=== PATIENT | female | born 1995 | race African-American/Black ===

== ENCOUNTER 2018-08-21 21:46 | Emergency (ER) | payer BC ==
[2018-08-21 22:11] VITALS: BMI 40.2
--- NOTE | 2018-08-21 23:51 | PDOC ---
History of Present Illness - General Chief Complaint: Pain Stated Complaint: CHEST PAIN Time Seen by Provider: 08/21/18 23:19 History Source: Patient Exam Limitations: No Limitations - History of Present Illness Initial Comments: 08/21/18 23:32 HISTORY OF PRESENT ILLNESS: 23-year-old woman and denies medical history presents emergency department for evaluation of tightness in her left chest under her left breast. Patient reports earlier today while at work she felt a fluttering sensation in her chest and noted her heart rate at 130 bpm on her Smartt watch. Patient reports symptoms spontaneously resolved after a brief time but she was able to return to work without difficulty. While packing her house to move today she began to experience the tightness in her chest was noted to have a heart rate of 120s on her Smartt watch at that time. Patient was concerned and presented to the emergency department immediately for evaluation. Patient reports symptoms have resolved spontaneously and currently is a heart rate of 88. No recent travel or sick contacts. PAST MEDICAL HISTORY: Denies past medical history SURGICAL HISTORY: Denies ALLERGIES: No known drug allergies REVIEW OF SYSTEMS General/Constitutional: Denies fever or chills. Denies weakness, weight change. HEENT: Denies change in vision. Denies ear pain or discharge. Denies sore throat. Cardiovascular: see HPI Respiratory: Denies cough, wheezing, or hemoptysis. Gastrointestinal: Denies nausea, vomiting, diarrhea or constipation. Denies rectal bleeding. Genitourinary: Denies dysuria, frequency, or change in urination. Musculoskeletal: Denies joint or muscle swelling or pain. Denies neck or back pain. Skin and breasts: Denies rash or easy bruising. Neurologic: Denies headache, vertigo, loss of consciousness, or loss of sensation. Psychiatric: Denies depression or anxiety. Endocrine: Denies increased thirst. Denies abnormal weight change. Hematologic/Lymphatic: Denies anemia, easy bleeding, or history of blood clots. Allergic/Immunologic: Denies hives or skin allergy. Denies latex allergy. PHYSICAL EXAM General Appearance: Well-appearing, appropriately dressed. No apparent distress , no intoxication. HEENT: EOMI, PERRLA, normal ENT inspection, normal voice, TMs normal, pharynx normal. No conjunctival pallor. No photophobia, scleral icterus. Neck: Supple. Trachea midline. No tenderness, rigidity, carotid bruit, stridor , lymphadenopathy, or thyromegaly. Respiratory/Chest: Lungs CTAB. No shortness of breath, chest tenderness, respiratory distress, accessory muscle use. No crackles, rales, rhonchi, stridor , wheezing, dullness Cardiovascular: RRR. S1, S2. No JVD, murmur, bradycardia, tachycardia. Vascular Pulses: Dorsalis-Pedis (R): 2+, Dorsalis-Pedis (L): 2+ Gastrointestinal/Abdominal: Normal bowel sounds. Abdomen soft, non-distended. No tenderness or rebound tenderness. No organomegaly, pulsatile mass, guarding, hernia, hepatomegaly, splenomegaly. Lymphatic: No adenopathy, tenderness. Musculoskeletal/Extremities: Normal inspection. FROM of all extremities, normal capillary refill. Pelvis Stable. No CVA tenderness. No tenderness to extremities, pedal edema, swelling, erythema or deformity. Integumentary: Appropriate color, dry, warm. No cyanosis, erythema, jaundice or rash Neurologic: ent consultant II-XII intact. Fully oriented, alert. Appropriate mood/affect. Motor strength 5/5. No appreciable EOM palsy, facial droop or sensory deficit. Past History - Past Medical History Allergies/Adverse Reactions: Allergies Allergy/AdvReac Type Severity Reaction Status Date / Time No Known Allergies Allergy Verified 08/21/18 22:07 Home Medications: Ambulatory Orders NK [No Known Home Medication] 08/21/18 COPD: No - Suicide/Smoking/Psychosocial Hx Smoking History: Never smoked *Physical Exam - Vital Signs Last Vital Signs Temp Pulse Resp BP Pulse Ox 98.2 F 82 18 130/41 L 98 08/22/18 03:30 08/22/18 03:30 08/22/18 03:30 08/22/18 03:30 08/22/18 03:30 Heart Score/ECG Review - History History: Slightly suspicious - Electrocardiogram EKG: Non specific repolarization disturbance - Age Age: </= 45 - Risk Factors Risk Factors Heart Score: Yes Hx Obesity Based on the list above the patient has:: 1-2 risk factors - Troponin Troponin: </= normal limit - Score Heart Score - Total: 2 - ECG Intrepretation Rhythm: Regular Rhythm - ECG Impressions Tachycardia: Sinus ED Treatment Course - LABORATORY CBC & Chemistry Diagram: 08/22/18 00:01 08/22/18 02:10 - ADDITIONAL ORDERS Additional order review: 08/22/18 00:01 RBC 3.95 MCV 88.3 MCHC 33.7 RDW 13.5 MPV 8.7 Neutrophils % 63.9 Lymphocytes % 25.8 Monocytes % 6.1 Eosinophils % 3.3 Basophils % 0.9 - RADIOLOGY Radiology Studies Ordered: Category Date Time Status CHEST PA & LAT [RAD] Stat Radiology 08/22/18 01:31 Completed Medical Decision Making - Medical Decision Making 08/21/18 23:51 A/P: 23-year-old woman with left-sided chest tightness lasting approximately 30 minutes Differential diagnosis includes-ACS, PE, pneumonia, anxiety, musculoskeletal pain, pneumothorax Labs including cardiac profile and d-dimer Chest x-ray EKG sinus tachycardia with rate of 111. Normal intervals present. Normal axis. T -wave inversions in V3. Urinalysis, urine Reassess 08/22/18 01:45 Chemistries were hemolyzed D-dimer is QNS Chest x-rays read by me and will sharp. Lung leary are clear. No pneumothorax is seen. Trachea is midline. Cardiac silhouette is within normal limits. Redraw labs Likely discharge 08/22/18 03:07 [id number] Chemistries are unremarkable with a troponin of less than 0.02 TSH is within normal limits I will discharge the patient home to follow-up with her primary doctor 08/22/18 03:22 *DC/Admit/Observation/Transfer Diagnosis at time of Disposition: Anxiety - Discharge Dispostion Disposition: HOME Condition at time of disposition: Stable Decision to Admit order: No - Referrals Referrals: Steven Dhlilon MD [Primary Care Provider] - - Patient Instructions Printed Discharge Instructions: DI for Anxiety -- Adult Additional Instructions: Your evaluation in the emergency department is incomplete and 2 follow-up with your primary doctor. Your EKG, chest x-ray and laboratory testing today was normal. Make an appointment with her primary doctor within the next 4 days. Return to emergency department for any new or worsening symptoms. Thank you very much for choosing us to provide your emergent health care needs. - Post Discharge Activity
[2018-08-22 00:35] LABS: BASO % 0.9 % (0-2.0); EOS % 3.3 % (0-4.5); HEMATOCRIT 34.9 % (32.4-45.2); HEMOGLOBIN 11.7 GM/dL (10.7-15.3); LYMPH % 25.8 % (8-40); MCH 29.8 pg (25.7-33.7); MCHC 33.7 g/dl (32.0-36.0); MEAN CELL VOLUME 88.3 fl (80-96); MEAN PLT VOLUME 8.7 fl (7.5-11.1); MONO % 6.1 % (3.8-10.2); NEUT % 63.9 % (42.8-82.8); PLATELET COUNT 206 K/MM3 (134-434); RBC 3.95 M/mm3 (3.60-5.2); RDW 13.5 % (11.6-15.6); WHITE BLOOD COUNT 7.5 K/mm3 (4.0-10.0)
[2018-08-22 01:00] LABS: HCG,QUALITATIVE URINE Negative
[2018-08-22 01:03] LABS: EPI CELLS 11.6 /HPF (0-5/HPF); HYALINE CASTS 3 /lpf (0-8); PH,URINE 6.5 (5.0-8.0); URINE APPEARANCE CLOUDY; URINE BACTERIA 433.6 /hpf (NEGATIVE); URINE BILIRUBIN NEGATIVE (NEGATIVE); URINE COLOR YELLOW; URINE GLUCOSE (UA) NEGATIVE (NEGATIVE); URINE KETONE NEGATIVE (NEGATIVE); URINE LEUK ESTERASE TRACE (NEGATIVE); URINE NITRITE NEGATIVE (NEGATIVE); URINE PROTEIN NEGATIVE (NEGATIVE); URINE RBC 5 /hpf (0-4); URINE UROBILINOGEN 0.2 mg/dL (0.2-1.0); URINE WBC 9 /hpf (0-5)
[2018-08-22 03:05] LABS: ALBUMIN 3.9 g/dl (3.4-5.0); ALK PHOS 52 U/L (45-117); ANION GAP 5 MMOL/L (8-16); BILIRUBIN,TOTAL 0.3 mg/dL (0.2-1); BLOOD UREA NITROGEN 11.8 mg/dL (7-18); CALCIUM 8.8 mg/dL (8.5-10.1); CHLORIDE 110 mmol/L (98-107); CO2 26 mmol/L (21-32); CREATININE 0.7 mg/dL (0.55-1.3); GLUCOSE,RANDOM 96 mg/dL (74-106); POTASSIUM 4.1 mmol/L (3.5-5.1); SGOT/AST 8 U/L (15-37); SGPT/ALT 13 U/L (13-61); SODIUM 141 mmol/L (136-145); TOT PROT 7.1 g/dl (6.4-8.2)
[2018-08-22 03:32] VITALS: BP 130/41; PULSE 82; TEMP 98.2
--- NOTE | 2018-08-22 11:35 | EKG ---
Test Reason : Blood Pressure : / mmHG Vent. Rate : 111 BPM Atrial Rate : 111 BPM P-R Int : 172 ms QRS Dur : 086 ms QT Int : 324 ms P-R-T Axes : 051 045 037 degrees QTc Int : 440 ms SINUS TACHYCARDIA NONSPECIFIC T WAVE ABNORMALITY ABNORMAL ECG NO PREVIOUS ECGS AVAILABLE Confirmed by CYNTHIA DOMINGUEZ MD ([id number]) on 08/22/2018 11:34:41 AM Referred By: Confirmed By:CYNTHIA DOMINGUEZ MD
== END 2018-08-22 03:32 | disposition home or self-care (01) ==
LOC: JER 21:46
DX: F41.9 Anxiety disorder, unspecified (principal)
CPT/HCPCS: 36415; 71046-TC-FY; 80053; 81003; 82550; 84443; 84484; 84703; 85025; 85379; 93005; 93010; 99282-25

== ENCOUNTER 2019-01-08 11:38 | Emergency (ER) | payer BC ==
[2019-01-08 11:54] VITALS: BP 114/77; PULSE 88; TEMP 98.4; BMI 42.7
[2019-01-08 13:21] LABS: BASO % 0.9 % (0-2.0); EOS % 4.4 % (0-4.5); HEMATOCRIT 35.3 % (32.4-45.2); HEMOGLOBIN 11.7 GM/dL (10.7-15.3); MCH 29.5 pg (25.7-33.7); MCHC 33.1 g/dl (32.0-36.0); MEAN CELL VOLUME 88.9 fl (80-96); MEAN PLT VOLUME 8.2 fl (7.5-11.1); MONO % 5.7 % (3.8-10.2); PLATELET COUNT 214 K/MM3 (134-434); RBC 3.97 M/mm3 (3.60-5.2); RDW 13.4 % (11.6-15.6); WHITE BLOOD COUNT 6.5 K/mm3 (4.0-10.0)
--- NOTE | 2019-01-08 13:33 | PDOC ---
History of Present Illness - General Chief Complaint: ,Possible Stated Complaint: ECTOPIC Time Seen by Provider: 01/08/19 11:55 History Source: Patient Exam Limitations: No Limitations - History of Present Illness Initial Comments: 01/08/19 13:29 Chief complaint: confirmed ectopic 23-year-old female denies past medical history G1, P0 LMP 11/17/2018 7 weeks gestational age presents for methotrexate given confirmed ectopic today. Seen today at [facility] by Dr. Jacqueline Schwartz , left adnexal mass noted, no sac or pole noted on ultrasound. Beta hCG 12/30, beta hCG 01/01. Patient denies vaginal bleeding, pelvic pain , abdominal pain, low back pain, dizziness, chest pain, shortness of breath, urinary symptoms or any other complaints. ROS: GENERAL/CONSTITUTIONAL: No fever, weakness, dizziness HEAD, EYES, EARS, NOSE AND THROAT: No change in vision. No ear pain or discharge. No sore throat. CARDIOVASCULAR: No chest pain RESPIRATORY: No shortness of breath or cough GASTROINTESTINAL: No pain, nausea, vomiting, diarrhea or constipation GENITOURINARY: No dysuria MUSCULOSKELETAL: No neck or back pain SKIN: No rash NEUROLOGIC: No headache, vertigo, loss of consciousness, or loss of sensation. PE: GENERAL: awake, alert, and fully oriented, NAD HEAD: NCAT EYES: Pupils equal, round and reactive to light, sclera anicteric, conjunctiva clear ENT: pharynx: no erythema, no exudate, uvula midline NECK: supple CHEST: nontender RESP: clear, no w/r/r CARDIO: rrr, no m/g/r ABD: +BS, soft, nontender, non distended BACK: no midline spinal ttp, no CVAT EXTREMITIES: Normal range of motion, no edema NEUROLOGICAL: Normal speech, normal gait SKIN: Warm, Dry Is this a multiple visit Asthma Patient?: No Past History - Past Medical History Allergies/Adverse Reactions: Allergies Allergy/AdvReac Type Severity Reaction Status Date / Time No Known Allergies Allergy Verified 01/08/19 12:14 Home Medications: Ambulatory Orders NK [No Known Home Medication] 08/21/18 COPD: No - Psycho Social/Smoking Cessation Hx Smoking History: Never smoked Have you smoked in the past 12 months: No Information on smoking cessation initiated: No Hx Alcohol Use: No Drug/Substance Use Hx: No *Physical Exam - Vital Signs Last Vital Signs Temp Pulse Resp BP Pulse Ox 98.4 F 88 18 114/77 99 01/08/19 11:48 01/08/19 11:48 01/08/19 11:48 01/08/19 11:48 01/08/19 11:48 ED Treatment Course - LABORATORY CBC & Chemistry Diagram: 01/08/19 12:46 01/08/19 12:46 - ADDITIONAL ORDERS Additional order review: 01/08/19 12:46 RBC 3.97 MCV 88.9 MCHC 33.1 RDW 13.4 MPV 8.2 Neutrophils % 64.0 Lymphocytes % 25.0 Monocytes % 5.7 Eosinophils % 4.4 Basophils % 0.9 Medical Decision Making - Medical Decision Making 01/08/19 14:06 Assessment and plan: Confirmed ectopic on ultrasound today Awaiting labs beta hCG Will order methotrexate 01/08/19 15:22 Beta 3841.5 LFTs and coags reviewed Patient received methotrexate IM Advised to keep her follow-up OB appointment in 3 days Understands that she is to return to the ED for heavy vaginal bleeding, worsening abdominal pain, chest pain, dizziness or any other symptoms. Discharge - Discharge Information Problems reviewed: Yes Clinical Impression/Diagnosis: Ectopic Qualifiers: Location of ectopic : tubal Intrauterine status: without intrauterine Laterality: left Qualified Code(s): O00.102 - Left tubal without intrauterine Condition: Stable Disposition: HOME - Admission No - Follow up/Referral Referrals: Steven Dhillon MD [Primary Care Provider] - - Patient Discharge Instructions Additional Instructions: Keep your follow-up appointment scheduled with [facility] in 3 days You may develop abdominal cramping after receiving methotrexate. Take ibuprofen 600 mg 1 tablet every 4-6 hours as needed for pain. If you develop heavy vaginal bleeding, abdominal pain, dizziness, shortness of breath, or any worsening symptoms return to the ED immediately - Post Discharge Activity
[2019-01-08 13:35] LABS: INR 1.11 (0.83-1.09); PROTHROMBIN TIME (PATIENT) 13.1 SEC (9.7-13.0)
[2019-01-08 13:38] LABS: ACTIVATED PTT 30.8 SECONDS (25.2-36.5)
[2019-01-08 13:58] LABS: BILIRUBIN,TOTAL 0.3 mg/dL (0.2-1); CREATININE 0.5 mg/dL (0.55-1.3); POTASSIUM 3.7 mmol/L (3.5-5.1); TOT PROT 7.4 g/dl (6.4-8.2)
[2019-01-08] MEDS ORDERED: METHOTREXATE SODIUM/PF 25 MG/ML VIAL IM ONE (14:16)
== END 2019-01-08 15:30 | disposition home or self-care (01) ==
LOC: JERFT 11:38
PROC: 3E023GC Introduction of Other Therapeutic Substance into Muscle, Percutaneous Approach (ICD-10-PCS; principal; 2019-01-08)
DX: O26.891 Other specified pregnancy related conditions, first trimester (principal); O00.102 Left tubal pregnancy without intrauterine pregnancy; Z3A.01 Less than 8 weeks gestation of pregnancy
CPT/HCPCS: 36415; 80053; 84702; 85025; 85610; 85730; 99281-25; J9260

== ENCOUNTER 2020-05-15 10:23 | Emergency (ER) | payer BC ==
[2020-05-15 10:40] VITALS: BP 122/78; PULSE 95; TEMP 97; BMI 42.0
== END 2020-05-15 11:45 | disposition home or self-care (01) ==
LOC: JERFT 10:23
PROC: 2W3QX1Z Immobilization of Right Lower Leg using Splint (ICD-10-PCS; principal; 2020-05-15)
DX: S93.401A Sprain of unspecified ligament of right ankle, initial encounter (principal)
CPT/HCPCS: 73610-TC-RT-FY; 73630-TC-RT-FY; 99283-25